=== PATIENT | female | born 1990 | race Caucasian/White ===

== ENCOUNTER 2016-11-12 19:21 | Emergency (ER) | payer OTHER ==
[2016-11-12 20:07] LABS: BASOPHIL % 0.4 % (0-2); PLATELET COUNT 207 x10^3mcL (130-400)
[2016-11-12 20:46] VITALS: BP 110/59
== END 2016-11-12 20:46 | disposition home or self-care (01) ==
LOC: ED 19:21
PROVIDERS: Emergency Medicine
DX: O20.0 Threatened abortion (principal); Z3A.01 Less than 8 weeks gestation of pregnancy; Z88.8 Allergy status to other drugs, medicaments and biological substances

== ENCOUNTER 2016-11-14 21:06 | Emergency (ER) | payer OTHER ==
[2016-11-14 22:09] LABS: BASOPHIL % 0.4 % (0-2); PLATELET COUNT 203 x10^3mcL (130-400); RED CELL DISTRIBUTION WIDTH 13.2 % (11.5-14.5)
[2016-11-15 02:02] VITALS: BP 128/62
== END 2016-11-15 02:02 | disposition home or self-care (01) ==
LOC: ED 21:06
PROVIDERS: Emergency Medicine
DX: O20.0 Threatened abortion (principal); Z3A.00 Weeks of gestation of pregnancy not specified; Z91.041 Radiographic dye allergy status
CPT/HCPCS: 36415; J1460